=== PATIENT | female | born 1970 | race Caucasian/White ===

== ENCOUNTER 2017-05-12 09:40 | Outpatient (CLI) | payer BC | END 2017-05-12 09:41 | disposition home or self-care (01) | LOC: LAB.R 09:40 | PROVIDERS: ATTEND Family Medicine | DX: R30.0 Dysuria (principal) | CPT/HCPCS: 87086 ==

== ENCOUNTER 2017-07-15 11:27 | Outpatient (CLI) | payer BC ==
--- NOTE | 2017-07-15 17:21 | Mammography Report ---
DIGITAL DIAGNOSTIC RIGHT MAMMOGRAM: 07/15/2017 CLINICAL INDICATION: Right breast calcifications. TECHNIQUE: Right true lateral and spot magnification views. COMPARISON: 07/06/2017, 08/28/2015, 08/06/2014, 08/05/2012. The right breast again demonstrates heterogeneously dense fibroglandular parenchyma. The cluster of calcifications in the right outer, slightly upper central breast measures 3 mm. There is mild pleomo rphism present. No associated mass is identified. IMPRESSION: MILDLY PLEOMORPHIC 3 MM CLUSTER OF CALCIFICATIONS IN THE RIGHT OUTER, SLIGHTLY UPPER TRACY TRAL BREAST. RECOMMENDATION: BIOPSY. THE CALCIFICATIONS APPEAR AMENABLE TO STEREOTACTIC SAMPLING. BIRADS CATEGORY: 4, SUSPICIOUS ABNORMALITY. Results and recommendations discussed with the patient at the time of the examination, and called to Dr. Dorantes on 07/15/2017. Information has been forwarded to Severiano Taylor for biopsy laminuli anibal. STANDARD QUALIFYING STATEMENTS 1. This examination was reviewed with the aid of Computed-Aided Detection (CAD). 2. A negative or benign imaging report should not delay biopsy if clinically suspicious findings are present. Consider surgical consultation if warranted. More than 5% of cancers are not identified b y imaging. 3. Dense breasts may obscure an underlying neoplasm. JOB #: [id number] EXT JOB #:[id number]
== END 2017-07-15 11:28 | disposition home or self-care (01) ==
LOC: DI 11:27
PROVIDERS: ATTEND Family Medicine
DX: R92.1 Mammographic calcification found on diagnostic imaging of breast (principal)

== ENCOUNTER 2017-11-17 07:38 | Outpatient (CLI) | payer OTHER ==
[2017-11-17 08:00] LABS: BASOPHILS % (AUTO) 1.3 %; EOSINOPHILS # (AUTO) 0.1 10^3/uL (0.0-0.7); HGB - HEMOGLOBIN 13.7 g/dL (12.0-16.0); LYMPHOCYTES # (AUTO) 1.3 10^3/uL (1.5-3.5); LYMPHOCYTES % (AUTO) 35.7 %; MEAN CORPUSCULAR HEMOGLOBIN 30.6 pg (27.0-31.0); MEAN CORPUSCULAR HGB CONC 34.5 g/dL (32.0-36.0); MEAN CORPUSCULAR VOLUME 88.5 fL (81.0-99.0); MEAN PLATELET VOLUME 7.8 fL (7.9-10.8); MONOCYTES # (AUTO) 0.5 10^3/uL (0.0-1.0); MONOCYTES % (AUTO) 12.8 %; NEUTROPHILS # (AUTO) 1.8 10^3/uL (1.5-6.6); NEUTROPHILS % (AUTO) 48.2 %; PLT - PLATELET COUNT 245 10^3/uL (130-450); RED BLOOD COUNT 4.47 10^6/uL (4.20-5.40); RED CELL DISTRIBUTION WIDTH 12.8 % (12.0-15.0); WHITE BLOOD COUNT 3.7 x10^3/uL (4.8-10.8)
[2017-11-17 08:19] LABS: ALBUMIN 4.6 g/dL (3.2-5.5); ALBUMIN/GLOBULIN RATIO 1.9 (1.0-2.2); ALKALINE PHOSPHATASE 37 IU/L (42-121); ALT ALANINE AMINOTRANSFERASE 15 IU/L (10-60); AST ASPARTATE AMINOTRANSFERASE 15 IU/L (10-42); BILIRUBIN,TOTAL 1.1 mg/dL (0.2-1.0); BUN - BLOOD UREA NITROGEN 8 mg/dL (6-20); CALCIUM 9.1 mg/dL (8.5-10.3); CARBON DIOXIDE - CO2 26 mmol/L (21-32); CHLORIDE 101 mmol/L (101-111); CHOL/HDL RATIO 2.6 (<4.4); CHOLESTEROL 204 mg/dL; CREATININE 0.6 mg/dL (0.4-1.0); GFR - MDRD 108 (>89); GLUCOSE 90 mg/dL (70-100); HDL CHOLESTEROL 77 mg/dL; LDL CHOLESTEROL,CALCULATED 111 mg/dL; LDL/HDL RATIO 1.4 (<4.4); SODIUM 136 mmol/L (135-145); VLDL CHOLESTEROL 16 mg/dL
== END 2017-11-17 07:39 | disposition home or self-care (01) ==
LOC: LAB 07:38
PROVIDERS: ATTEND Physician Assistant Medical
DX: Z00.00 Encounter for general adult medical examination without abnormal findings (principal)
CPT/HCPCS: 36415; 80053; 80061; 83721; 84403; 84443; 85025

== ENCOUNTER 2018-04-07 11:10 | Outpatient (CLI) | payer OTHER ==
[2018-04-07 18:47] LABS: BASOPHILS # (AUTO) 0.1 10^3/uL (0.0-0.1); BASOPHILS % (AUTO) 1.9 %; EOSINOPHILS % (AUTO) 1.3 %; HGB - HEMOGLOBIN 13.6 g/dL (12.0-16.0); LYMPHOCYTES # (AUTO) 1.1 10^3/uL (1.5-3.5); LYMPHOCYTES % (AUTO) 34.7 %; MEAN CORPUSCULAR HEMOGLOBIN 32.1 pg (27.0-31.0); MEAN CORPUSCULAR HGB CONC 34.3 g/dL (32.0-36.0); MEAN CORPUSCULAR VOLUME 93.6 fL (81.0-99.0); MEAN PLATELET VOLUME 8.3 fL (7.9-10.8); MONOCYTES # (AUTO) 0.3 10^3/uL (0.0-1.0); MONOCYTES % (AUTO) 9.1 %; NEUTROPHILS # (AUTO) 1.7 10^3/uL (1.5-6.6); PLT - PLATELET COUNT 259 10^3/uL (130-450); RED BLOOD COUNT 4.22 10^6/uL (4.20-5.40); RED CELL DISTRIBUTION WIDTH 13.1 % (12.0-15.0); WHITE BLOOD COUNT 3.3 x10^3/uL (4.8-10.8)
[2018-04-07 19:02] LABS: RHEUMATOID FACTOR NEGATIVE (Negative)
[2018-04-07 19:37] LABS: CRP - C-REACTIVE PROTEIN < 1.0 mg/dL (0-1.0); URIC ACID 4.2 mg/dL (2.6-7.2)
[2018-04-09 15:02] LABS: ANA SCREEN NEGATIVE (NEGATIVE)
== END 2018-04-07 11:11 | disposition home or self-care (01) ==
LOC: LAB.WCP 11:10
PROVIDERS: ATTEND Physician Assistant Medical
DX: M79.1 Myalgia (principal)
CPT/HCPCS: 36415; 81599; 84550; 85025; 85651; 86038; 86140; 86430; 86812

== ENCOUNTER 2018-07-05 12:39 | Outpatient (CLI) | payer OTHER ==
--- NOTE | 2018-07-05 14:38 | Mammography Report ---
Reason: ATYPICAL DUCTAL HYPERPLASIA OF BREAST Procedure Date: 07/05/2018 Accession Number: [id number] / [id number] Procedure: GRACE - Diagnostic Dig Bilat CPT Code: FULL RESULT: EXAM: Diagnostic Dig Bilat DATE: 07/05/2018 1:41 PM CLINICAL HISTORY: 47-year-old female status post right breast lumpectomy in September 2017 with pathology results of atypical ductal hyperplasia presents for baseline diagnostic mammogram. TECHNIQUE: Bilateral CC and MLO views were obtained. COMPARISON: 07/15/2017, 07/06/2017, 08/28/2015, 08/06/2014. FINDINGS: The breasts demonstrate heterogeneously dense fibroglandular parenchyma bilaterally. Postsurgical changes are identified in the right breast. No suspicious mass, architectural distortion or calcifications are identified. IMPRESSION: Benign findings RECOMMENDATION: Recommend routine annual Screening mammography unless otherwise clinically indicated. BIRADS CATEGORY 2: Benign findings STANDARD QUALIFYING STATEMENTS: 1. This examination was not reviewed with the aid of Computer-Aided Detection (CAD). 2. A negative or benign imaging report should not delay biopsy if clinically suspicious findings are present. Consider surgical consultation if warrented. More than 5% of cancers are not identified by imaging. 3. Dense breasts may obscure an underlying neoplasm. 4. This examination was reviewed with the aid of 3D imaging (tomography).
== END 2018-07-05 12:40 | disposition home or self-care (01) ==
LOC: DI 12:39
PROVIDERS: ATTEND Physician Assistant Medical
DX: N60.91 Unspecified benign mammary dysplasia of right breast (principal)
CPT/HCPCS: 77066

== ENCOUNTER 2018-07-05 12:44 | Outpatient (CLI) | payer OTHER ==
--- NOTE | 2018-07-05 14:11 | XRAY Report ---
Reason: BACK,R HIP PAIN Procedure Date: 07/05/2018 Accession Number: [id number] / [id number] Procedure: XR - Hip w/Pelvis 2-3V RT CPT Code: FULL RESULT: EXAM: RIGHT HIP AND PELVIS RADIOGRAPHY EXAM DATE: 07/05/2018 01:08 PM. HISTORY: Back, right hip pain. COMPARISONS: None. TECHNIQUE: 1 view of the pelvis and 1 view of the hip. FINDINGS: Bones: Normal. No fracture or bone lesion. Joints: The bilateral hip, pubis symphysis, and sacroiliac joints are preserved. Soft Tissues: Normal. No soft tissue swelling. IMPRESSION: No significant degenerative changes and no fracture or dislocation. RADIA
--- NOTE | 2018-07-05 14:11 | XRAY Report ---
Reason: BACK,R HIP PAIN Procedure Date: 07/05/2018 Accession Number: [id number] / [id number] Procedure: XR - SI Joints CPT Code: FULL RESULT: EXAM: SACROILIAC JOINT RADIOGRAPHY EXAM DATE: 07/05/2018 01:08 PM. CLINICAL HISTORY: Back, right hip pain. COMPARISON: None. TECHNIQUE: 3 views. FINDINGS: Bones: Normal. No fracture or bone lesion. Joints: The sacroiliac joints are normal. Soft Tissues: Normal. IMPRESSION: Normal sacroiliac joint radiography. RADIA
--- NOTE | 2018-07-05 14:11 | XRAY Report ---
Reason: BACK,R HIP PAIN Procedure Date: 07/05/2018 Accession Number: [id number] / [id number] Procedure: XR - Lumbar Spine 2 View CPT Code: FULL RESULT: EXAM: LUMBOSACRAL SPINE RADIOGRAPHY EXAM DATE: 07/05/2018 01:08 PM. CLINICAL HISTORY: Back and right hip pain. COMPARISONS: None. TECHNIQUE: 3 views. FINDINGS: Alignment: Mild dextroconvex lumbar scoliosis centered about L3. No listhesis. Bones: Five [id number] lumbar vertebral bodies are present. No fractures or bone lesions. Disks: Normal. Disk heights are maintained. Facets: Mild L5 facet arthropathy. Sacroiliac Joints: Unremarkable. Soft Tissues: Normal. The visualized bowel gas pattern is normal. IMPRESSION: Mild scoliosis and L5 facet arthropathy. RADIA
== END 2018-07-05 12:45 | disposition home or self-care (01) ==
LOC: DI 12:44
PROVIDERS: ATTEND Internal Medicine Rheumatology
DX: M41.86 Other forms of scoliosis, lumbar region (principal); M54.5 Low back pain; M25.551 Pain in right hip; N60.91 Unspecified benign mammary dysplasia of right breast
CPT/HCPCS: 72100; 72202; 77066

== ENCOUNTER 2019-07-10 10:53 | Outpatient (CLI) | payer OTHER ==
--- NOTE | 2019-07-10 15:17 | Mammography Report ---
Reason: SCREENING MAMMO Procedure Date: 07/10/2019 Accession Number: [id number] / [id number] Procedure: GRACE - Screening Mammo w/Noé CPT Code: Final Report FULL RESULT: EXAM: Screening Mammo w/Noé DATE: 07/10/2019 11:25 AM CLINICAL HISTORY: Routine screening. No reported personal or family history of breast cancer. History of right breast high risk excisional biopsy for atypical ductal hyperplasia in 2018. TECHNIQUE: (B) - Bilateral CC and MLO views were obtained. COMPARISON: 07/05/2018 through 08/06/2014 PARENCHYMAL PATTERN: (D) - The breasts demonstrate heterogeneously dense fibroglandular parenchyma bilaterally. FINDINGS: Right breast: There are interval expected excisional biopsy changes from the upper outer breast anterior depth. There is a stable 6 mm oval mass with circumscribed margins in the medial breast. No suspicious masses, calcifications or areas of nonoperative distortion. Left breast: There are no suspicious masses, calcifications, or areas of distortion. IMPRESSION: Benign findings. BI-RADS category 2. RECOMMENDATION: (ANNUAL) - Recommend routine annual screening mammography. BI-RADS CATEGORY: (2) - Benign Findings. STANDARD QUALIFYING STATEMENTS: 1. This examination was not reviewed with the aid of Computer-Aided Detection (CAD). 2. A negative or benign imaging report should not preclude biopsy if clinically suspicious findings are present. 3. Dense breasts may obscure an underlying neoplasm. 4. This examination was reviewed with the aid of 3D breast imaging (tomosynthesis).
== END 2019-07-10 10:54 | disposition home or self-care (01) ==
LOC: DI 10:53
DX: Z12.31 Encounter for screening mammogram for malignant neoplasm of breast (principal)
CPT/HCPCS: 77063; 77067

== ENCOUNTER 2020-08-26 11:18 | Outpatient (CLI) | payer OTHER ==
--- NOTE | 2020-08-27 12:51 | Mammography Report ---
BILATERAL DIGITAL SCREENING MAMMOGRAM 3D/2D: 08/26/2020 CLINICAL: Routine screening. Personal history of right breast cancer. Routine screening. Comparison is made to exams dated: 07/10/2019 mammogram, 07/05/2018 mammogram - [facility], 08/11/2017 stereotactic biopsy - [facility], and 07/06/2017 mammogram - [facility]. The tissue of both breasts is heterogeneously dense. This may lower the sensi tivity of mammography. There are benign post operative findings in the right breast. No significant masses, calcifications, or other findings are seen in either breast. There has been no significant interval change. IMPRESSION: BENIGN There is no mammographic evidence of malignancy. A 1 year screening mammogram is recommended. This exam was interpreted at Station ID: [id number]. NOTE: For mammograms, a report in lay terms will be sent to the patient. Approximately 15% of breast malignancies will not be visualized mammographically. In the management of a palpable breast mass, a negative mammogram must not discourage biopsy of a clinically suspicious lesion. Electronically Signed By: Vinod green/ale:08/26/2020 18:10:45 ACR BI-RADS Category 2: Benign Finding(s) 3342F PARENCHYMAL PATTERN: (D) - The breast(s) demonstrate(s) heterogeneously dense fibroglandular davion montgomery. BI-RADS CATEGORY: (2) - 2 RECOMMENDATION: (ANNUAL) - Recommend routine annual screening mammography. [id number] 1 year screening LATERALITY: (B)
== END 2020-08-26 11:19 | disposition home or self-care (01) ==
LOC: DI.N 11:18
DX: Z12.31 Encounter for screening mammogram for malignant neoplasm of breast (principal); Z85.3 Personal history of malignant neoplasm of breast

== ENCOUNTER 2024-01-02 08:32 | Outpatient (CLI) | payer OTHER ==
[2024-01-02 08:58] LABS: BASOPHILS % (AUTO) 1.3 %; EOSINOPHILS # (AUTO) 0.1 10^3/uL (0.0-0.7); EOSINOPHILS % (AUTO) 1.6 %; HGB - HEMOGLOBIN 13.6 g/dL (12.0-16.0); LYMPHOCYTES # (AUTO) 1.5 10^3/uL (1.5-3.5); MEAN CORPUSCULAR HEMOGLOBIN 31.9 pg (27.0-31.0); MEAN CORPUSCULAR HGB CONC 34.9 g/dL (32.0-36.0); MEAN CORPUSCULAR VOLUME 91.5 fL (81.0-99.0); MEAN PLATELET VOLUME 10.2 fL (7.9-10.8); MONOCYTES # (AUTO) 0.3 10^3/uL (0.0-1.0); MONOCYTES % (AUTO) 10.8 %; NEUTROPHILS # (AUTO) 1.2 10^3/uL (1.5-6.6); PLT - PLATELET COUNT 211 10^3/uL (130-450); RED BLOOD COUNT 4.26 10^6/uL (4.20-5.40); RED CELL DISTRIBUTION WIDTH 11.5 % (12.0-15.0); WHITE BLOOD COUNT 3.1 x10^3/uL (4.8-10.8)
[2024-01-02 09:11] LABS: ALBUMIN 4.5 g/dL (3.2-5.5); ALBUMIN/GLOBULIN RATIO 1.7 (1.0-2.2); ALKALINE PHOSPHATASE 52 IU/L (42-121); ALT ALANINE AMINOTRANSFERASE 18 IU/L (10-60); AST ASPARTATE AMINOTRANSFERASE 16 IU/L (10-42); BUN - BLOOD UREA NITROGEN 11 mg/dL (6-20); CALCIUM 9.9 mg/dL (8.5-10.3); CARBON DIOXIDE - CO2 27 mmol/L (21-32); CHLORIDE 103 mmol/L (101-111); CHOL/HDL RATIO 2.6 (<4.4); CHOLESTEROL 177 mg/dL; CREATININE 0.7 mg/dL (0.6-1.3); CRP - C-REACTIVE PROTEIN < 0.5 mg/dL (<0.5); GFR - MDRD 88 (>89); GLUCOSE 93 mg/dL (74-104); HDL CHOLESTEROL 67 mg/dL; LDL CHOLESTEROL,CALCULATED 92 mg/dL; LDL/HDL RATIO 1.4 (<4.4); POTASSIUM 3.7 mmol/L (3.5-4.5); SODIUM 136 mmol/L (135-145); TOTAL PROTEIN 7.2 g/dL (6.4-8.9); TRIGLYCERIDES 88 mg/dL (48-352); VLDL CHOLESTEROL 18 mg/dL
[2024-01-02 09:23] LABS: THYROID STIMULATING HORMONE 1.68 uIU/mL (0.34-5.60)
== END 2024-01-02 08:33 | disposition home or self-care (01) ==
LOC: LAB 08:32
PROVIDERS: ATTEND Physician Assistant Medical
DX: Z00.00 Encounter for general adult medical examination without abnormal findings (principal); R76.8 Other specified abnormal immunological findings in serum
CPT/HCPCS: 36415; 80053; 80061; 83721; 84443; 85025; 85651; 86140

== ENCOUNTER 2024-01-31 09:27 | Day surgery (SDC) | payer MEDICARE ==
[2024-01-31 10:13] LABS: HCG UR QUAL NEGATIVE
[2024-01-31] MEDS: LACTATED RINGERS 1,000 ML IV ONE (10:15)
[2024-01-31 10:25] VITALS: O2SAT 100
--- NOTE | 2024-01-31 10:29 | ANESTHESIA ---
Pre-Anesthesia VS, & Labs - Diagnosis screening exam - Procedure colonoscopy Vital Signs: Temp Pulse Resp BP Pulse Ox O2 Flow Rate 36.7 C 78 14 106/78 100 01/31/24 10:00 01/31/24 10:00 01/31/24 10:00 01/31/24 10:00 01/31/24 10:00 Height: 5 ft 5 in Weight (kg): 64.3 kg Body Mass Index: 23.6 BMI Classification: Normal - NPO >8 hours - Is Patient ?: No Home Medications and Allergies Home Medications: Ambulatory Orders Diazepam [Valium] 2 mg PO PRN PRN 01/28/24 Gabapentin [Neurontin] 100 mg PO DAILY PM 01/28/24 Diazepam [Valium] 2 mg PO PRN PRN 01/28/24 Gabapentin [Neurontin] 100 mg PO DAILY PM 01/28/24 Allergies/Adverse Reactions: Allergies Allergy/AdvReac Type Severity Reaction Status Date / Time No Known Drug Allergies Allergy Verified 01/31/24 10:26 Anes History & Medical History - Anesthetic History Anesthesia Complications: reports: No previous complications - Medical History Cardiovascular: reports: None Pulmonary: reports: None Gastrointestinal: reports: None Urinary: reports: None Neuro: reports: Peripheral neuropathy (cervical) Musculoskeletal: reports: None Endocrine/Autoimmune: reports: None Blood Disorders: reports: None Skin: reports: None Smoking Status: Never smoker Psychosocial: reports: No issues indicated History of Cancer?: No - Surgical History General: reports: Other (breast lumpectomy) Orthopedic: reports: Spine surgery (ACDF), Other (right foot) Exam General: Alert, Oriented x3, Cooperative, No acute distress Dental: WNL Mouth Openin Fingerbreadth Neck Mobility: Normal Mallampati classification: II Thyromental Distance: 4-6 cm Mental/Cognitive Status: Alert/Oriented X3, Normal for patient Plan Anesthesia Type: General Consent for Procedure(s) Verified and Reviewed: Yes Code Status: Attempt Resuscitation ASA classification: 1-Healthy patient Is this case an emergency?: No
[2024-01-31] MEDS ORDERED: MIDAZOLAM 2 MG/2 ML VIAL ONE (11:20)
[2024-01-31] MEDS ORDERED: PROPOFOL 500 MG/50 ML 500 MG/50 ML VIAL ONE (11:20)
[2024-01-31] MEDS: LACTATED RINGERS 25 ML IV ONE (12:04)
--- NOTE | 2024-01-31 12:50 | ANESTHESIA POST OP EVALUATION ---
Anesthesia Post Eval - Post Anesthesia Eval Vitals: Last Vital Signs Temp 36.2 C L 01/31/24 12:04 Pulse 88 01/31/24 12:10 Resp 16 01/31/24 12:10 BP 106/78 01/31/24 12:10 Pulse Ox 100 01/31/24 12:10 O2 Flow Rate CV Function Including HR & BP: Stable Pain Control: Satisfactory Nausea & Vomiting: Negative Mental Status: Baseline Respiratory Status: Airway Patent Hydration Status: Satisfactory Anesthesia Complications: None
[2024-01-31 12:59] VITALS: BP 109/68
== END 2024-01-31 09:28 | disposition home or self-care (01) ==
LOC: SDS 09:27
PROVIDERS: ATTEND Surgery
DX: Z12.11 Encounter for screening for malignant neoplasm of colon (principal); K64.1 Second degree hemorrhoids
CPT/HCPCS: 81025; G0121; J7120